=== PATIENT | male | born 1990 | race African-American/Black ===

== ENCOUNTER 2017-08-13 08:26 | Emergency (ER) | payer SELFPAY ==
[~2017-08-13] VITALS: Ht 177.8 cm; Wt 90.0 kg
[~2017-08-13 08:26] MED LIST: Z.0.NO CURRENT MEDS
[2017-08-13 08:31] VITALS: BP 107/56; PULSE 61; RESP 14; TEMP 97.8; O2SAT 100
[2017-08-13] MEDS ORDERED: BACT800T5 PO (08:59)
--- NOTE | 2017-08-13 09:06 | PD ---
HPI . Rash Chief Complaint: Skin Problem Time Seen by Provider: 08:54 Travel History International Travel<30 days: No Contact w/Intl Traveler<30days: No Traveled to known affect area: No History of Present Illness HPI 27-year-old male patient presents emergency for evaluation of itchy rash on his bilateral lower extremities 2 days. Patient denies any fever, chills, malaise , chest pain, shortness breath, nausea, vomiting, diarrhea or lightheadedness. Patient denies any major medical history and doesn't take any daily medication. PFSH Past Medical History ADHD: Yes Arthritis: No Asthma: No Autoimmune Disease: No Blood Disorders: No Anxiety: Yes Depression: Yes Heart Rhythm Problems: No Cancer: No Cardiac Catheterization: No Cardiovascular Problems: No High Cholesterol: Yes ( A CHILD) Chemotherapy: No Chest Pain: No Congestive Heart Failure: No COPD: No Cerebrovascular Accident: No Diabetes: No Diminished Hearing: No Endocrine: No GERD: No Glaucoma: No Genitourinary: No Headaches: No Hepatitis: No Hiatal Hernia: No Hypertension: No Immune Disorder: No Kidney Stones: No Musculoskeletal: No Neurologic: No Psychiatric: Yes Reproductive: No Respiratory: No Migraines: No Myocardial Infarction: No Radiation Therapy: No Renal Failure: No Seizures: No Sickle Cell Disease: No Sleep Apnea: No Thyroid Disease: No Ulcer: No Past Surgical History Abdominal Surgery: No AICD: No Appendectomy: No Arteriovenous Shunt: No Cardiac Surgery: No Cholecystectomy: No Coronary Artery Bypass Graft: No Ear Surgery: No Endocrine Surgery: No Eye Surgery: No Genitourinary Surgery: No Gynecologic Surgery: No Insulin Pump: No Joint Replacement: No Oral Surgery: No Pacemaker: No Thoracic Surgery: No Tonsillectomy: Yes Social History Alcohol Use: Yes (OCCASIONALLY) Tobacco Use: Yes (1/2 PPD) 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 Nontoxic appearing. SKIN: Multiple honey-colored colored lesions with mild erythema around the edge noted on bilateral lower extremities. No purulent drainage. HEAD: Normocephalic. Atraumatic. EYES: No scleral icterus. No injection or drainage. NECK: Supple, trachea midline. No JVD or lymphadenopathy. CARDIOVASCULAR: Regular rate and rhythm without murmurs, gallops, or rubs. RESPIRATORY: Breath sounds equal bilaterally. No accessory muscle use. GASTROINTESTINAL: Abdomen soft, non-tender, nondistended. MUSCULOSKELETAL: No cyanosis, or edema. BACK: Nontender without obvious deformity. No CVA tenderness. Data Data Last Documented VS Vital Signs Date Time Temp Pulse Resp B/P (MAP) Pulse Ox O2 Delivery O2 Flow Rate FiO2 08/13/17 08:31 97.8 61 14 107/56 (73) 100 MDM Medical Decision Making Medical Screen Exam Complete: Yes Emergency Medical Condition: Yes Differential Diagnosis Differential diagnoses include but not limited to cellulitis, impetigo, dermatitis Narrative Course 27-year-old male patient presents emergency department for evaluation of itchy rash to his bilateral lower extremities. Three-day duration. Denies any fevers , chills, malaise, shortness breath, chest pain. Physical exam is consistent with impetigo. Patient discharged home with prescription for Bactrim and instructions to keep the rash clean and dry, return the emergency Department with any worsening condition but otherwise follow up with primary care. Diagnosis Primary Impression: Impetigo Referrals: Primary Care Physician Patient Instructions: General Instructions, Impetigo (ED) Additional Instructions: Please return to emergency department if your symptoms return or worsen. Follow up with your primary care provider. Take medications as prescribed. Bactrim is free at [facility]. Keep skin clean and dry. Med/Other Pt SpecificInfo: Prescription(s) given Scripts Sulfamethoxazole-Trimethoprim (Bactrim DS) 800-160 Mg Tab 1 TAB PO BID for Infection for 7 Days, #14 TAB 0 Refills Prov: Denise Dennison Ilana HUFF 08/13/17 Disposition: DISCHARGE HOME Condition: Stable Denise Dennison Ilana HUFF Aug 13, 2017 09:06
== END 2017-08-13 09:30 | disposition home or self-care (01) ==
LOC: NEPD 08:26
DX: L01.00 Impetigo, unspecified (principal); F90.9 Attention-deficit hyperactivity disorder, unspecified type; F41.9 Anxiety disorder, unspecified; E78.00 Pure hypercholesterolemia, unspecified; F17.210 Nicotine dependence, cigarettes, uncomplicated
CPT/HCPCS: 99283